=== PATIENT | male | born 1975 | race American Indian/Alaskan Native ===

== ENCOUNTER 2021-05-09 00:57 | Emergency (ER) | payer OTHER ==
[~2021-05-09] VITALS: Ht 177.8 cm; Wt 124.7 kg
[~2021-05-09 00:57] MED LIST: ALBU90OI INH; AMOCLA875 PO; AZIT250 PO; Augmentin 875-1 EACH PO; ESCI10; HYDACE5 PO; IBUP200; OXYACE5T PO; PANT40 PO; RXSULTRIDS PO; SULTRIDS PO
[2021-05-09 02:16] LABS: BASOPHILS ABSOLUTE AUTO 0.04 K/mm3 (0.00-0.23); BASOPHILS PERCENT AUTO 0 % (0-2); EOSINOPHILS ABSOLUTE AUTO 0.03 K/mm3 (0.00-0.68); EOSINOPHILS PERCENT AUTO 0 % (0-6); Hematocrit 50.7 % (37.0-53.0); Hemoglobin 17.1 g/dL (13.5-17.5); IMMATURE GRAN ABSOLUTE AUTO 0.06 K/mm3 (0.00-0.10); IMMATURE GRAN PERCENT AUTO 1 % (0-1); LYMPHOCYTES ABSOLUTE AUTO 1.37 K/mm3 (0.84-5.20); LYMPHOCYTES PERCENT AUTO 11 % (21-46); MONOCYTES ABSOLUTE AUTO 0.94 K/mm3 (0.16-1.47); MONOCYTES PERCENT AUTO 7 % (4-13); Mean Corpuscular HGB 31.3 pg (26.0-34.0); Mean Corpuscular HGB Conc 33.7 g/dL (31.5-36.5); Mean Corpuscular Volume 93 fL (80-100); NEUTROPHILS ABSOLUTE AUTO 10.29 K/mm3 (1.96-9.15); NEUTROPHILS PERCENT AUTO 81 % (41-73); Platelet Count 234 K/mm3 (150-400); RDW Coefficient Variation 13.6 % (11.7-14.2); RDW Standard Deviation 46.8 fL (35.1-46.3); Red Blood Cell Count 5.47 M/mm3 (4.30-5.90); White Blood Cell Count 12.73 K/mm3 (4.00-11.30)
[2021-05-09] MEDS ORDERED: CHLO25B PO (02:21)
[2021-05-09] MEDS ORDERED: Ventolin/Prove6.7 GM INH (02:21)
[2021-05-09] MEDS ORDERED: LOSA50 PO (02:21)
[2021-05-09 02:31] LABS: Alanine Aminotransfer (ALT/SGP 63 U/L (12-78); Albumin, Blood 3.9 g/dL (3.4-5.0); Albumin/Globulin Ratio 0.9 (0.8-1.8); Alk Phos 128 U/L (50-136); Anion Gap 6 mmol/L (6-16); Aspartate Aminotrans (AST/SGOT 28 U/L (12-37); Blood Urea Nitrogen 16 mg/dL (8-24); Bun/Creatinine Ratio 14.3 (12.0-20.0); CO2, Blood 29 mmol/L (21-32); Chloride, Blood 100 mmol/L (98-108); Creatinine, Blood 1.12 mg/dL (0.60-1.20); Globulin, Blood 4.3 g/dL (2.2-4.0); Glomerular Filtration Rate >60 (60-); Glucose, Blood 86 mg/dL (70-99); Potassium, Blood 3.7 mmol/L (3.5-5.5); Sodium, Blood 135 mmol/L (136-145); Total Protein, Blood 8.2 g/dL (6.4-8.2)
[2021-05-09 03:13] LABS: SARS-Cov-2 (COVID-19) PCR, MMC NEGATIVE (NEGATIVE)
[2021-05-09] MEDS ORDERED: CEPH500 PO (04:50)
== END 2021-05-09 05:25 | disposition home or self-care (01) ==
LOC: ER 00:57
PROVIDERS: Emergency Medicine
DX: L03.116 Cellulitis of left lower limb (principal); E66.9 Obesity, unspecified; J44.9 Chronic obstructive pulmonary disease, unspecified; R73.03 Prediabetes; R00.0 Tachycardia, unspecified; Z68.39 Body mass index [BMI] 39.0-39.9, adult; Z20.822 Contact with and (suspected) exposure to COVID-19
CPT/HCPCS: 36415; 80053; 83605; 85025; 96365; 99283-25; A9270; J0696; J7030; U0004

== ENCOUNTER 2021-06-14 16:26 | Inpatient (IN) | payer OTHER ==
[~2021-06-14] VITALS: Ht 177.8 cm; Wt 136.1 kg
[~2021-06-14 16:26] MED LIST changes: +CEPH500 PO; +CHLO25B PO; +LOSA50 PO; +Ventolin/Prove6.7 GM INH
[2021-06-14 17:33] LABS: BASOPHILS ABSOLUTE AUTO 0.09 K/mm3 (0.00-0.23); BASOPHILS PERCENT AUTO 0 % (0-2); EOSINOPHILS PERCENT AUTO 0 % (0-6); Hematocrit 45.3 % (37.0-53.0); Hemoglobin 15.2 g/dL (13.5-17.5); IMMATURE GRAN ABSOLUTE AUTO 0.37 K/mm3 (0.00-0.10); IMMATURE GRAN PERCENT AUTO 2 % (0-1); LYMPHOCYTES ABSOLUTE AUTO 1.05 K/mm3 (0.84-5.20); LYMPHOCYTES PERCENT AUTO 4 % (21-46); MONOCYTES ABSOLUTE AUTO 0.57 K/mm3 (0.16-1.47); MONOCYTES PERCENT AUTO 2 % (4-13); Mean Corpuscular HGB 31.5 pg (26.0-34.0); Mean Corpuscular HGB Conc 33.6 g/dL (31.5-36.5); Mean Corpuscular Volume 94 fL (80-100); Mean Platelet Volume 10.1 fL (9.1-12.4); NEUTROPHILS ABSOLUTE AUTO 22.71 K/mm3 (1.96-9.15); NEUTROPHILS PERCENT AUTO 92 % (41-73); Platelet Count 224 K/mm3 (150-400); RDW Coefficient Variation 13.7 % (11.7-14.2); RDW Standard Deviation 47.3 fL (35.1-46.3); Red Blood Cell Count 4.82 M/mm3 (4.30-5.90); White Blood Cell Count 24.79 K/mm3 (4.00-11.30)
[2021-06-14 17:53] LABS: Alanine Aminotransfer (ALT/SGP 65 U/L (12-78); Albumin, Blood 2.7 g/dL (3.4-5.0); Albumin/Globulin Ratio 0.6 (0.8-1.8); Alk Phos 107 U/L (50-136); Anion Gap 7 mmol/L (6-16); Aspartate Aminotrans (AST/SGOT 51 U/L (12-37); Blood Urea Nitrogen 16 mg/dL (8-24); Bun/Creatinine Ratio 15.8 (12.0-20.0); CO2, Blood 24 mmol/L (21-32); Calcium, Blood 8.3 mg/dL (8.5-10.1); Chloride, Blood 102 mmol/L (98-108); Creatinine, Blood 1.01 mg/dL (0.60-1.20); Globulin, Blood 4.2 g/dL (2.2-4.0); Glomerular Filtration Rate >60 (60-); Glucose, Blood 110 mg/dL (70-99); Potassium, Blood 3.7 mmol/L (3.5-5.5); Sodium, Blood 133 mmol/L (136-145); Total Protein, Blood 6.9 g/dL (6.4-8.2)
[2021-06-14 21:33] LABS: SARS-Cov-2 (COVID-19) PCR, MMC NEGATIVE (NEGATIVE)
--- NOTE | 2021-06-14 23:55 | NUR ---
RECEIVED PATIENT FROM ED A&OX4. PATIENT NOTED HAVING LABORED BREATHING,3L O2 VIA NASAL CANNULA ADMINISTERED. PATIENT TOLERATED WELL. PATIENT IS A STAND BY ASSIST DUE TO LEG INFECTION. PATIENT DENIES PAIN. PATIENT ORIENTED TO ROOM AND CALL LIGHT. SAFETY MEASURES IN PLACE. WILL CONTINUE TO MONITOR PATIENT FOR SAFETY.
--- NOTE | 2021-06-15 03:57 | NUR ---
PATIENT IS A&OX3. STAND BY ASSIST. PRESENTLY ON O2 NASAL CANNULA @ 3L/MIN DUE TO LABORED BREATHING. PATIENT DENIES PAIN OR DISCOMFORT. PATIENT IS ON SCHEDULED IV ANTIBIOTIC DUE TO CELLULITIS OF LEFT LEG AND SEPSIS. PATIENT IS COMPLIANT WITH MEDICATIONS. ADLS PROVIDED. SAFETY MEASURES IN PLACE. WILL CONTINUE TO MONITOR.
[2021-06-15 05:10] LABS: BASOPHILS ABSOLUTE AUTO 0.05 K/mm3 (0.00-0.23); BASOPHILS PERCENT AUTO 0 % (0-2); EOSINOPHILS ABSOLUTE AUTO 0.05 K/mm3 (0.00-0.68); EOSINOPHILS PERCENT AUTO 0 % (0-6); Hemoglobin 15.1 g/dL (13.5-17.5); IMMATURE GRAN ABSOLUTE AUTO 0.11 K/mm3 (0.00-0.10); IMMATURE GRAN PERCENT AUTO 1 % (0-1); LYMPHOCYTES ABSOLUTE AUTO 1.03 K/mm3 (0.84-5.20); LYMPHOCYTES PERCENT AUTO 5 % (21-46); MONOCYTES ABSOLUTE AUTO 0.32 K/mm3 (0.16-1.47); MONOCYTES PERCENT AUTO 2 % (4-13); Mean Corpuscular HGB 31.1 pg (26.0-34.0); Mean Corpuscular HGB Conc 32.8 g/dL (31.5-36.5); Mean Corpuscular Volume 95 fL (80-100); NEUTROPHILS ABSOLUTE AUTO 18.83 K/mm3 (1.96-9.15); NEUTROPHILS PERCENT AUTO 92 % (41-73); Platelet Count 178 K/mm3 (150-400); RDW Coefficient Variation 13.9 % (11.7-14.2); RDW Standard Deviation 48.4 fL (35.1-46.3); Red Blood Cell Count 4.86 M/mm3 (4.30-5.90); White Blood Cell Count 20.39 K/mm3 (4.00-11.30)
[2021-06-15 05:55] LABS: Anion Gap 11 mmol/L (6-16); Blood Urea Nitrogen 15 mg/dL (8-24); CO2, Blood 20 mmol/L (21-32); Calcium, Blood 8.2 mg/dL (8.5-10.1); Chloride, Blood 101 mmol/L (98-108); Creatinine, Blood 0.94 mg/dL (0.60-1.20); Glomerular Filtration Rate >60 (60-); Glucose, Blood 95 mg/dL (70-99); Potassium, Blood 3.5 mmol/L (3.5-5.5); Sodium, Blood 132 mmol/L (136-145)
--- NOTE | 2021-06-15 18:05 | NUR ---
SHIFT SUMMARY PT SLEEPING AT START OF SHIFT AND MOST OF THE DAY. PT WAKES EASILY FOR CARE AND IS VERY PLEASANT AND CO-OP. RLE VERY RED AND SWOLLEN R/T CELLULITIS. SMALL WOUNDS TO LLE CALF. DR FUNES AND DR ZURITA BOTH IN TO SEE PT TODAY. RLE REDNESS MARKED BY DR FUNES. IV ABX GIVEN THRU OUT THE DAY, PER EMAR. PT HAS BEEN INDEPENDENT TO BTHRM NEEDED. BIPAP ORDERED BY DR FUNES FOR SLEEP, PT AGREED TO TRY IT. C/O PAIN TO RLE THIS EVENING; MEDICATED PER EMAR. CURRENTLY EATING DINNER AND TALKING ON PHONE. CALL LT IN REACH.
--- NOTE | 2021-06-16 04:09 | NUR ---
PATIENT WAS SLEEPING MOST OF THE SHIFT.EASY TO AROUSE. PT COMPLIANT WITH MEDS. RT CONNECTED PATIENT TO NEW BIPAP MACHINE. PT TOLERATED WELL. BREATHING EVEN AND UNLABORED. ADLS PROVIDED. SAFETY MEASURES IN PLACE. WILL CONTINUE TO MONITOR.
[2021-06-16 07:23] LABS: BASOPHILS ABSOLUTE AUTO 0.01 K/mm3 (0.00-0.23); BASOPHILS PERCENT AUTO 0 % (0-2); EOSINOPHILS ABSOLUTE AUTO 0.09 K/mm3 (0.00-0.68); EOSINOPHILS PERCENT AUTO 1 % (0-6); Hematocrit 46.6 % (37.0-53.0); Hemoglobin 15.6 g/dL (13.5-17.5); IMMATURE GRAN ABSOLUTE AUTO 0.05 K/mm3 (0.00-0.10); IMMATURE GRAN PERCENT AUTO 0 % (0-1); LYMPHOCYTES ABSOLUTE AUTO 1.01 K/mm3 (0.84-5.20); LYMPHOCYTES PERCENT AUTO 8 % (21-46); MONOCYTES ABSOLUTE AUTO 0.62 K/mm3 (0.16-1.47); MONOCYTES PERCENT AUTO 5 % (4-13); Mean Corpuscular HGB 31.8 pg (26.0-34.0); Mean Corpuscular HGB Conc 33.5 g/dL (31.5-36.5); Mean Corpuscular Volume 95 fL (80-100); Mean Platelet Volume 10.1 fL (9.1-12.4); NEUTROPHILS ABSOLUTE AUTO 10.27 K/mm3 (1.96-9.15); NEUTROPHILS PERCENT AUTO 85 % (41-73); Platelet Count 172 K/mm3 (150-400); RDW Coefficient Variation 13.9 % (11.7-14.2); RDW Standard Deviation 48.7 fL (35.1-46.3); White Blood Cell Count 12.05 K/mm3 (4.00-11.30)
[2021-06-16 07:39] LABS: Alanine Aminotransfer (ALT/SGP 43 U/L (12-78); Albumin, Blood 2.2 g/dL (3.4-5.0); Albumin/Globulin Ratio 0.5 (0.8-1.8); Alk Phos 97 U/L (50-136); Anion Gap 7 mmol/L (6-16); Aspartate Aminotrans (AST/SGOT 33 U/L (12-37); Bilirubin, Total 0.8 mg/dL (0.1-1.0); Blood Urea Nitrogen 24 mg/dL (8-24); Bun/Creatinine Ratio 30.6 (12.0-20.0); CO2, Blood 23 mmol/L (21-32); Calcium, Blood 8.4 mg/dL (8.5-10.1); Chloride, Blood 104 mmol/L (98-108); Creatinine, Blood 0.79 mg/dL (0.60-1.20); Globulin, Blood 4.6 g/dL (2.2-4.0); Glomerular Filtration Rate >60 (60-); Glucose, Blood 104 mg/dL (70-99); Potassium, Blood 3.7 mmol/L (3.5-5.5); Sodium, Blood 134 mmol/L (136-145); Total Protein, Blood 6.8 g/dL (6.4-8.2)
--- NOTE | 2021-06-16 16:48 | NUR ---
SHIFT SUMMARY PATIENT IS ALERT AND ORIENTED X4. PATIENT IS PLEASENT AND COOPERATIVE WITH CARE. PATIENT IS RESTLESS AND IS REQUESTING AN EARLY DISCHARGE WHICH IS BEING MONITORED BY DR AFTER EVENING ANTIBIOTICS GIVEN. PATIENT HAS TAKEN A SHOWER AND IS IN BETTER SPIRITS AFTERWARDS. PATIENT HAS BEEN INDEPENDENT TO BATHROOM AND IN ROOM. VITAL SIGNS REVIEWED. WILL CONTINUE TO MONITOR UNTIL SHIFT CHANGE.
[2021-06-16] MEDS ORDERED: CEFP200 PO (18:21)
[2021-06-16] MEDS ORDERED: VISBIOME 112.51 EACH PO (18:21)
== END 2021-06-16 18:45 | disposition home or self-care (01) | DRG 872 ==
LOC: ER 16:26 → MEDS 19:55
PROVIDERS: Emergency Medicine; Internal Medicine; ADMIT Family Medicine
PROC: 5A0935A Assistance with Respiratory Ventilation, Less than 24 Consecutive Hours, High Flow/Velocity Cannula (ICD-10-PCS; principal; 2021-06-15)
DX: A41.9 Sepsis, unspecified organism (principal); L03.116 Cellulitis of left lower limb; E87.1 Hypo-osmolality and hyponatremia; E87.2 Acidosis; Z68.41 Body mass index [BMI] 40.0-44.9, adult; Z20.822 Contact with and (suspected) exposure to COVID-19; R65.20 Severe sepsis without septic shock; I10 Essential (primary) hypertension; Z79.899 Other long term (current) drug therapy; J44.9 Chronic obstructive pulmonary disease, unspecified; F17.210 Nicotine dependence, cigarettes, uncomplicated; E66.9 Obesity, unspecified; G47.33 Obstructive sleep apnea (adult) (pediatric)
CPT/HCPCS: 36415; 73701; 80048; 80053; 83605; 84145; 85025; 93005; 93010; 94660; 94762; 96365-59; 96366-59; 96367-59; 99285-25; A9270; J0690; J1650; J1885; J3370; J7030; J7050; Q9967; U0004

== ENCOUNTER → 2021-10-31 | Outpatient (CLI) | payer OTHER ==
[~2021-10-31] MED LIST changes: +ASPI81CH PO; +ATEN25 PO; +Acetaminophen650 M1 PO; +CEFP200 PO; +GABA300 PO; +LASIX40 MG PO; +POTA8 PO; +VISBIOME 112.51 EACH PO
== END | disposition home or self-care (01) ==
LOC: LAB SHORT 09:24
DX: I50.9 Heart failure, unspecified (principal); M10.9 Gout, unspecified; F17.218 Nicotine dependence, cigarettes, with other nicotine-induced disorders; F15.10 Other stimulant abuse, uncomplicated; E66.8 Other obesity
CPT/HCPCS: 83880

== ENCOUNTER 2022-11-03 20:33 | Inpatient (IN) | payer OTHER ==
[~2022-11-03] VITALS: Ht 177.8 cm; Wt 124.1 kg
[~2022-11-03 20:33] MED LIST changes: -LASIX40 MG PO; -POTA8 PO
[2022-11-03 21:12] LABS: BASOPHILS ABSOLUTE AUTO 0.05 K/mm3 (0.00-0.23); BASOPHILS PERCENT AUTO 1 % (0-2); EOSINOPHILS ABSOLUTE AUTO 0.08 K/mm3 (0.00-0.68); EOSINOPHILS PERCENT AUTO 1 % (0-6); Hematocrit 51.1 % (37.0-53.0); Hemoglobin 16.9 g/dL (13.5-17.5); IMMATURE GRAN ABSOLUTE AUTO 0.01 K/mm3 (0.00-0.10); IMMATURE GRAN PERCENT AUTO 0 % (0-1); LYMPHOCYTES ABSOLUTE AUTO 0.96 K/mm3 (0.84-5.20); LYMPHOCYTES PERCENT AUTO 16 % (21-46); MONOCYTES ABSOLUTE AUTO 0.63 K/mm3 (0.16-1.47); MONOCYTES PERCENT AUTO 11 % (4-13); Mean Corpuscular HGB 29.9 pg (26.0-34.0); Mean Corpuscular HGB Conc 33.1 g/dL (31.5-36.5); Mean Corpuscular Volume 90 fL (80-100); NEUTROPHILS ABSOLUTE AUTO 4.15 K/mm3 (1.96-9.15); NEUTROPHILS PERCENT AUTO 71 % (41-73); Platelet Count 244 K/mm3 (150-400); RDW Coefficient Variation 15.2 % (11.7-14.2); RDW Standard Deviation 50.3 fL (35.1-46.3); Red Blood Cell Count 5.65 M/mm3 (4.30-5.90); White Blood Cell Count 5.88 K/mm3 (4.00-11.30)
[2022-11-03 21:29] LABS: Albumin, Blood 3.2 g/dL (3.4-5.0); Albumin/Globulin Ratio 0.7 (0.8-1.8); Bilirubin, Total 0.5 mg/dL (0.1-1.0); Bun/Creatinine Ratio 26.4 (12.0-20.0); Calcium, Blood 8.8 mg/dL (8.5-10.1); Creatinine, Blood 0.83 mg/dL (0.60-1.20); Globulin, Blood 4.8 g/dL (2.2-4.0); Potassium, Blood 4.5 mmol/L (3.5-5.5)
[2022-11-03 21:30] LABS: Influenza A, PCR NEGATIVE (NEGATIVE); Influenza B, PCR NEGATIVE (NEGATIVE); Resp Syncytial Virus, PCR NEGATIVE (NEGATIVE); SARS-Cov-2 (COVID-19) PCR, MMC NEGATIVE (NEGATIVE)
[2022-11-03 23:12] LABS: Source, Urine Clean Catch
[2022-11-03 23:23] LABS: Appearance, Urine Clear (Clear); Bilirubin, Urine Neg (Neg); Blood, Urine 1+ (Neg); Color, Urine Yellow (P-Yellow); Glucose Qualitative, Urine Neg (Neg); Ketones, Urine Neg (Neg); Leukocyte Esterase, Urine Neg (Neg); Nitrite, Urine Neg (Neg); Protein, Urine Neg (Neg); Urobilinogen, Urine NORM (Normal)
[2022-11-04 00:22] LABS: Bacteria Few /hpf; Squamous Epithelial Cells Rare /hpf (Few); White Blood Cells, Urine 0-2 /hpf (0-5)
--- NOTE | 2022-11-04 02:54 | NUR ---
ADMIT NOTE 46 YR OLD MALE ADMITTED TO FLOOR FROM THE ED WITH DX OF CHF EXACERBATION. HAND BOOKBINDER ERPORTED PT CAME IN WITH SOB AND COUGH. HAD SWELLING OF BLE, RECEIVED LASIX IN THE ED. VSS. ALERT TO QUESTIONS ASKED. HOB ELEVATED, O2 AT 4L/NC. NOTE BLE SWELLING WITH RED AND SORES OF SKIN. PT SAID MD ASSESSED THEN AND IT WAS "SWELLING BECAUSE I HAVE CHF - NOT CELLULITIS". BLE ELEVATED. PLACED ON TELE PER MD ORDERS. ORIENTED TO USE OF CALL LIGHT. CALL LIGHT IN REACH. WILL CONTINUE TO MONITOR
[2022-11-04 05:12] LABS: BASOPHILS ABSOLUTE AUTO 0.05 K/mm3 (0.00-0.23); BASOPHILS PERCENT AUTO 1 % (0-2); EOSINOPHILS ABSOLUTE AUTO 0.04 K/mm3 (0.00-0.68); EOSINOPHILS PERCENT AUTO 1 % (0-6); Hemoglobin 16.6 g/dL (13.5-17.5); IMMATURE GRAN ABSOLUTE AUTO 0.02 K/mm3 (0.00-0.10); IMMATURE GRAN PERCENT AUTO 0 % (0-1); LYMPHOCYTES ABSOLUTE AUTO 1.66 K/mm3 (0.84-5.20); LYMPHOCYTES PERCENT AUTO 23 % (21-46); MONOCYTES ABSOLUTE AUTO 0.98 K/mm3 (0.16-1.47); MONOCYTES PERCENT AUTO 14 % (4-13); Mean Corpuscular HGB Conc 32.5 g/dL (31.5-36.5); Mean Corpuscular Volume 92 fL (80-100); Mean Platelet Volume 10.1 fL (9.1-12.4); NEUTROPHILS ABSOLUTE AUTO 4.49 K/mm3 (1.96-9.15); NEUTROPHILS PERCENT AUTO 62 % (41-73); Platelet Count 222 K/mm3 (150-400); RDW Coefficient Variation 15.5 % (11.7-14.2); RDW Standard Deviation 52.4 fL (35.1-46.3); Red Blood Cell Count 5.53 M/mm3 (4.30-5.90); White Blood Cell Count 7.24 K/mm3 (4.00-11.30)
--- NOTE | 2022-11-04 05:16 | NUR ---
POUND ATTENDANT SUMMARY HAS BEEN RESTING DEEPLY WITH FEW INTERRUPTIONS SINCE ADMISSION, O2 PER NC. DENIED CHEST PAIN. LEGS ELEVATED REMAIN SWOLLEN AND RED. CALL LIGHT IN REACH. WILL CONTINUE TO MONITOR. HX HTN, BP ELEVATED OTHERWISE VSS.
[2022-11-04 05:36] LABS: Albumin/Globulin Ratio 0.7 (0.8-1.8); Bilirubin, Total 0.7 mg/dL (0.1-1.0); Calcium, Blood 8.4 mg/dL (8.5-10.1); Creatinine, Blood 0.85 mg/dL (0.60-1.20); Globulin, Blood 4.4 g/dL (2.2-4.0); Magnesium, Blood 2.1 mg/dL (1.6-2.4); Potassium, Blood 4.8 mmol/L (3.5-5.5); Total Protein, Blood 7.4 g/dL (6.4-8.2)
[2022-11-04] MEDS ORDERED: LASIX40 MG PO (16:35)
[2022-11-04] MEDS ORDERED: POTCHL20ER PO (16:36)
--- NOTE | 2022-11-04 19:21 | NUR ---
PT ALERT NO S/S OF ACUTE DISTRESS. SAFETY MEASURES IN PLACE REPORT GIVEN TO ON COMING NURSE.
[2022-11-05 05:30] LABS: Hematocrit 52.5 % (37.0-53.0); Hemoglobin 17.3 g/dL (13.5-17.5); Mean Corpuscular HGB 30.4 pg (26.0-34.0); Mean Corpuscular Volume 92 fL (80-100); Mean Platelet Volume 10.3 fL (9.1-12.4); Platelet Count 211 K/mm3 (150-400); RDW Coefficient Variation 15.2 % (11.7-14.2); RDW Standard Deviation 51.7 fL (35.1-46.3); White Blood Cell Count 7.13 K/mm3 (4.00-11.30)
[2022-11-05 06:18] LABS: Albumin, Blood 2.8 g/dL (3.4-5.0); Albumin/Globulin Ratio 0.6 (0.8-1.8); Bilirubin, Total 0.5 mg/dL (0.1-1.0); Bun/Creatinine Ratio 29.3 (12.0-20.0); Calcium, Blood 8.6 mg/dL (8.5-10.1); Creatinine, Blood 0.89 mg/dL (0.60-1.20); Globulin, Blood 4.4 g/dL (2.2-4.0); Total Protein, Blood 7.2 g/dL (6.4-8.2)
--- NOTE | 2022-11-05 19:15 | NUR ---
PT ALERT NO S/S OF ACUTE DISTRESS. SAFETY MEASURES IN PLACE REPORT GIVEN TO ON COMING NURSE.
[2022-11-06 05:30] LABS: Hematocrit 54.5 % (37.0-53.0); Mean Corpuscular Volume 91 fL (80-100); Mean Platelet Volume 10.6 fL (9.1-12.4); Platelet Count 184 K/mm3 (150-400); RDW Standard Deviation 50.7 fL (35.1-46.3); White Blood Cell Count 7.15 K/mm3 (4.00-11.30)
--- NOTE | 2022-11-06 05:59 | NUR ---
PT IS A&O4, INDEPENDENT WITH ADL'S, 4L NC WITH SATS IN THE MID 90'S, NO COMPLAINTS OF PAIN OR DISCOMFORT OVERNIGHT, CONTINUE POC
[2022-11-06 06:05] LABS: Albumin, Blood 2.9 g/dL (3.4-5.0); Albumin/Globulin Ratio 0.6 (0.8-1.8); Bilirubin, Total 0.5 mg/dL (0.1-1.0); Calcium, Blood 8.8 mg/dL (8.5-10.1); Creatinine, Blood 0.76 mg/dL (0.60-1.20); Globulin, Blood 4.5 g/dL (2.2-4.0); Potassium, Blood 4.9 mmol/L (3.5-5.5); Total Protein, Blood 7.4 g/dL (6.4-8.2)
--- NOTE | 2022-11-06 19:11 | NUR ---
PT ALERT NO S/S OF ACUTE DISTRESS, SAFETY MEASURES IN PLACE REPORT GIVEN TO ON COMING NURSE.
[2022-11-07 09:18] LABS: Albumin, Blood 2.8 g/dL (3.4-5.0); Anion Gap 3 mmol/L (6-16); Blood Urea Nitrogen 25 mg/dL (8-24); Bun/Creatinine Ratio 40.9 (12.0-20.0); CO2, Blood 29 mmol/L (21-32); Calcium, Blood 8.7 mg/dL (8.5-10.1); Chloride, Blood 106 mmol/L (98-108); Creatinine, Blood 0.61 mg/dL (0.60-1.20); Glomerular Filtration Rate 121 (60-); Glucose, Blood 130 mg/dL (70-99); Phosphorus, Blood 3.5 mg/dL (2.5-4.9); Potassium, Blood 4.6 mmol/L (3.5-5.5); Sodium, Blood 138 mmol/L (136-145)
[2022-11-07] MEDS ORDERED: ASPI81CH PO (11:23)
[2022-11-07] MEDS ORDERED: BISA10S PR (11:24)
[2022-11-07] MEDS ORDERED: DOCU100 PO (11:24)
[2022-11-07] MEDS ORDERED: GABA300 PO (11:25)
[2022-11-07] MEDS ORDERED: METO25 PO (11:25)
[2022-11-07] MEDS ORDERED: MIRALAX17 GM PO (11:26)
--- NOTE | 2022-11-07 11:26 | NUR ---
PT REFUSE TO WAIT FOR HOME O2 FABRIZIOAL I WALKED PT AROUND THE UNIT TWICE O2 SAT ON ROOM AIR IS 97% REVIEW PT VITALS TO CONFIRM. CHARGE NURSE MADE AWARE DOCTOR MADE AWARE. PT DC HOME.
[2022-11-07] MEDS ORDERED: ALBU90OI INH (11:27)
== END 2022-11-07 11:51 | disposition home or self-care (01) | DRG 291 ==
LOC: ER 20:33 → MEDS 11-04 00:05
PROVIDERS: Emergency Medicine; Internal Medicine; Student in an Organized Health Care Education/Training Program; ADMIT Student in an Organized Health Care Education/Training Program
PROC: 5A09357 Assistance with Respiratory Ventilation, Less than 24 Consecutive Hours, Continuous Positive Airway Pressure (ICD-10-PCS; principal; 2022-11-04)
DX: I11.0 Hypertensive heart disease with heart failure (principal); I50.43 Acute on chronic combined systolic (congestive) and diastolic (congestive) heart failure; J96.01 Acute respiratory failure with hypoxia; J98.11 Atelectasis; R65.10 Systemic inflammatory response syndrome (SIRS) of non-infectious origin without acute organ dysfunction; Z68.41 Body mass index [BMI] 40.0-44.9, adult; I42.0 Dilated cardiomyopathy; J44.9 Chronic obstructive pulmonary disease, unspecified; G47.33 Obstructive sleep apnea (adult) (pediatric); I27.20 Pulmonary hypertension, unspecified; F17.210 Nicotine dependence, cigarettes, uncomplicated; I42.7 Cardiomyopathy due to drug and external agent; I08.1 Rheumatic disorders of both mitral and tricuspid valves; F15.10 Other stimulant abuse, uncomplicated; E11.9 Type 2 diabetes mellitus without complications; E66.9 Obesity, unspecified; J06.9 Acute upper respiratory infection, unspecified; Z20.822 Contact with and (suspected) exposure to COVID-19; Z91.199 Patient's noncompliance with other medical treatment and regimen due to unspecified reason; Z79.899 Other long term (current) drug therapy; Z79.51 Long term (current) use of inhaled steroids; Z79.82 Long term (current) use of aspirin; Z79.01 Long term (current) use of anticoagulants; Z99.81 Dependence on supplemental oxygen
CPT/HCPCS: 0241U; 36415; 71046; 71260; 80053; 80069; 81001; 82947; 83605; 83735; 83880; 84145; 84484; 85025; 85027; 87040; 93005; 93010; 93306; 94640; 94664; 94761; 94762; 96374; 96375; 99285-25; A9270; J0696; J1650; J1885; J1940; Q9967

== ENCOUNTER 2023-06-09 18:39 | Inpatient (IN) | payer OTHER ==
[~2023-06-09] VITALS: Ht 177.8 cm; Wt 132.8 kg
[~2023-06-09 18:39] MED LIST changes: +BISA10S PR; +DOCU100 PO; +LASIX40 MG PO; +METO25 PO; +MIRALAX17 GM PO; +POTCHL20ER PO
[2023-06-09 20:36] LABS: BASOPHILS ABSOLUTE AUTO 0.04 K/mm3 (0.00-0.23); BASOPHILS PERCENT AUTO 0 % (0-2); EOSINOPHILS ABSOLUTE AUTO 0.08 K/mm3 (0.00-0.68); EOSINOPHILS PERCENT AUTO 1 % (0-6); Hematocrit 50.6 % (37.0-53.0); IMMATURE GRAN ABSOLUTE AUTO 0.12 K/mm3 (0.00-0.10); IMMATURE GRAN PERCENT AUTO 1 % (0-1); LYMPHOCYTES ABSOLUTE AUTO 0.82 K/mm3 (0.84-5.20); LYMPHOCYTES PERCENT AUTO 7 % (21-46); MONOCYTES ABSOLUTE AUTO 0.29 K/mm3 (0.16-1.47); MONOCYTES PERCENT AUTO 2 % (4-13); Mean Corpuscular HGB 31.5 pg (26.0-34.0); Mean Corpuscular HGB Conc 33.6 g/dL (31.5-36.5); Mean Corpuscular Volume 94 fL (80-100); Mean Platelet Volume 10.3 fL (9.1-12.4); NEUTROPHILS ABSOLUTE AUTO 10.96 K/mm3 (1.96-9.15); NEUTROPHILS PERCENT AUTO 89 % (41-73); Platelet Count 156 K/mm3 (150-400); RDW Coefficient Variation 14.1 % (11.7-14.2); RDW Standard Deviation 48.6 fL (35.1-46.3); Red Blood Cell Count 5.39 M/mm3 (4.30-5.90); White Blood Cell Count 12.31 K/mm3 (4.00-11.30)
[2023-06-09 21:00] LABS: Albumin, Blood 2.9 g/dL (3.4-5.0); Albumin/Globulin Ratio 0.7 (0.8-1.8); Bilirubin, Total 1.5 mg/dL (0.1-1.0); Bun/Creatinine Ratio 23.2 (12.0-20.0); Calcium, Blood 8.7 mg/dL (8.5-10.1); Creatinine, Blood 0.91 mg/dL (0.60-1.20); Globulin, Blood 4.1 g/dL (2.2-4.0); Potassium, Blood 4.9 mmol/L (3.5-5.5)
[2023-06-10 00:33] VITALS: BP 125/89
[2023-06-10] MEDS ORDERED: LOSA50 PO (02:20)
[2023-06-10] MEDS ORDERED: MUPIROCIN2210 TOP (02:21)
[2023-06-10] MEDS ORDERED: METOPROLOL TART25 MG PO (02:22)
[2023-06-10 02:48] VITALS: BP 124/65
--- NOTE | 2023-06-10 04:12 | NUR ---
SHIFT SUMMARY *JAYCE* ARRIVED FROM THE ED AT APPROX 0015. HE WAS ALERT AND ORIENTED BUT SLEEPY. PT ABLE TO AMBULATE TO BED. ADMISSION HX AND ASSEMENT COMPLETE, HOME MEDS NEED TO BE VERIFIED, WILL PASS ALONG TO DAY SHIFT TO CONTACT [facility]. PT IS ON 4L 02 NC AND SATING IN LOW 90'S WITH OCCASIONAL DIPS INTO HIGH 80'S D/T SLEEP APNEA. HE HAS CELLULITIS OF THE RIGHT LEG FROM ANKLE TO ABOVE THE KNEE, BORDERS WERE MARKED IN THE ED. PT DENIES PAIN. WILL CONTINUE TO MONITOR. PT IS RESTING IN BED IN A LOW POSITION WITH THE CALL LIGHT IN REACH.
[2023-06-10 07:47] VITALS: BP 137/89
[2023-06-10 10:43] LABS: BASOPHILS ABSOLUTE AUTO 0.04 K/mm3 (0.00-0.23); BASOPHILS PERCENT AUTO 0 % (0-2); EOSINOPHILS ABSOLUTE AUTO 0.11 K/mm3 (0.00-0.68); EOSINOPHILS PERCENT AUTO 1 % (0-6); Hemoglobin 16.1 g/dL (13.5-17.5); IMMATURE GRAN ABSOLUTE AUTO 0.05 K/mm3 (0.00-0.10); IMMATURE GRAN PERCENT AUTO 1 % (0-1); LYMPHOCYTES ABSOLUTE AUTO 0.74 K/mm3 (0.84-5.20); LYMPHOCYTES PERCENT AUTO 7 % (21-46); MONOCYTES ABSOLUTE AUTO 0.37 K/mm3 (0.16-1.47); MONOCYTES PERCENT AUTO 4 % (4-13); Mean Corpuscular HGB 31.9 pg (26.0-34.0); Mean Corpuscular HGB Conc 33.5 g/dL (31.5-36.5); Mean Corpuscular Volume 95 fL (80-100); NEUTROPHILS ABSOLUTE AUTO 8.83 K/mm3 (1.96-9.15); NEUTROPHILS PERCENT AUTO 87 % (41-73); Platelet Count 144 K/mm3 (150-400); RDW Coefficient Variation 14.2 % (11.7-14.2); RDW Standard Deviation 49.6 fL (35.1-46.3); Red Blood Cell Count 5.05 M/mm3 (4.30-5.90); White Blood Cell Count 10.14 K/mm3 (4.00-11.30)
[2023-06-10 10:56] LABS: U Amphetamine Screen DETECTED; U Barbituate Screen Not Detected; U Benzodiazapine Screen Not Detected; U Buprenorphine Screen Not Detected; U Cannabinoids Screen Not Detected; U Cocaine Screen Not Detected; U Methadone Screen Not Detected; U Methamphetamine Screen DETECTED; U Opiates Screen Not Detected; U Oxycodone Screen Not Detected; U Phencyclidine Screen Not Detected; U Propoxyphene Screen Not Detected
[2023-06-10 11:22] LABS: Albumin, Blood 2.4 g/dL (3.4-5.0); Albumin/Globulin Ratio 0.6 (0.8-1.8); Bilirubin, Total 0.9 mg/dL (0.1-1.0); Calcium, Blood 8.3 mg/dL (8.5-10.1); Creatinine, Blood 0.74 mg/dL (0.60-1.20); Globulin, Blood 3.9 g/dL (2.2-4.0); Potassium, Blood 4.2 mmol/L (3.5-5.5); Total Protein, Blood 6.3 g/dL (6.4-8.2)
[2023-06-10 15:00] VITALS: BP 136/91
--- NOTE | 2023-06-10 17:08 | NUR ---
SHIFT SUMMARY Pt remains A&OX3 this shift. Declines pain med for RLE cellulitis. VSS. OOB independently. 4L NC with sleep secondary to BRO. No needs id or verbalized at this time. Will continue to monitor this shift.
[2023-06-10 19:45] VITALS: BP 129/84
[2023-06-10 21:03] LABS: Vancomycin, Trough 14.2 ug/mL (5.0-10.0)
[2023-06-11 04:49] VITALS: BP 125/87
--- NOTE | 2023-06-11 06:10 | NUR ---
SHIFT SUMMARY NO EVENTS OVERNIGHT, DENIES PAIN. SLEPT WITH 4L NC AT NIGHT. FIRE SAFETY REVIEWED, NO IGNITION SOURCES FOUND.
[2023-06-11 08:14] VITALS: BP 147/102
[2023-06-11 16:25] VITALS: BP 131/84
--- NOTE | 2023-06-11 16:26 | NUR ---
SHIFT SUMMARY Pt remains A&0 x3 this shift. VSS. RLE elevated. Tolerating IV antibiotics as ordered. OOB independently. Declines pain med. Call light in reach. Will continue to monitor this shift.
[2023-06-11 19:52] VITALS: BP 132/92
--- NOTE | 2023-06-12 06:46 | NUR ---
SHIFT SUMMARY PT COMPLETED SLEEP STUDY OVERNIGHT, INFORMED BY RESPIRATORY TO NOT TAKE VS DURING OVERNIGHT SLEEP TEST AND TO KEEP DISTURBANCES TO A MINIMUM TO PROMOTE SLEEP. PT DID REQUIRE OXYGEN APPLICATION AT SOME POINT DURING THE NIGHT AND WAS APPLIED BY RESPIRATORY THERAPY. NO OTHER EVENTS. FIRE SAFETY REVIEWED, NO IGNITION SOURCES
[2023-06-12 07:34] VITALS: BP 120/84
[2023-06-12 07:50] LABS: BASOPHILS ABSOLUTE AUTO 0.06 K/mm3 (0.00-0.23); BASOPHILS PERCENT AUTO 1 % (0-2); EOSINOPHILS ABSOLUTE AUTO 0.28 K/mm3 (0.00-0.68); EOSINOPHILS PERCENT AUTO 3 % (0-6); Hematocrit 48.1 % (37.0-53.0); Hemoglobin 15.8 g/dL (13.5-17.5); IMMATURE GRAN ABSOLUTE AUTO 0.08 K/mm3 (0.00-0.10); IMMATURE GRAN PERCENT AUTO 1 % (0-1); LYMPHOCYTES ABSOLUTE AUTO 1.92 K/mm3 (0.84-5.20); LYMPHOCYTES PERCENT AUTO 21 % (21-46); MONOCYTES PERCENT AUTO 8 % (4-13); Mean Corpuscular HGB Conc 32.8 g/dL (31.5-36.5); Mean Corpuscular Volume 94 fL (80-100); Mean Platelet Volume 10.6 fL (9.1-12.4); NEUTROPHILS ABSOLUTE AUTO 6.17 K/mm3 (1.96-9.15); NEUTROPHILS PERCENT AUTO 67 % (41-73); Platelet Count 197 K/mm3 (150-400); RDW Coefficient Variation 13.9 % (11.7-14.2); RDW Standard Deviation 48.1 fL (35.1-46.3); White Blood Cell Count 9.21 K/mm3 (4.00-11.30)
[2023-06-12 08:10] LABS: Bun/Creatinine Ratio 27.6 (12.0-20.0); Calcium, Blood 8.1 mg/dL (8.5-10.1); Creatinine, Blood 0.76 mg/dL (0.60-1.20); Potassium, Blood 4.4 mmol/L (3.5-5.5)
[2023-06-12 12:48] LABS: Vancomycin, Trough 17.1 ug/mL (5.0-10.0)
[2023-06-12] MEDS ORDERED: LACT PO (15:14)
[2023-06-12] MEDS ORDERED: Acetaminophen650 M1 PO (15:14)
[2023-06-12] MEDS ORDERED: CEPH500 PO (15:15)
--- NOTE | 2023-06-12 16:19 | NUR ---
PT RESTING QUIETLY IN BED AT START OF SHIFT. WOKE EASILY FOR CARE. INDEPENDENT IN AND TO [facility]. ADMITTED FOR RLE CELLULITIS. REDNESS/SWELLING MARKED. PT RECEIVING IV ABX. DR TRIPATHI IN EARLY TO SEE PT. D/C ORDERS PLACED THIS AFTERNOON. PT ABLE TO D/C HOME AFTER IV ABX COMPLETE. PT TO CONTINUE WITH PO ABX FOR 7 DAYS AND F/U WITH PCP. D/C INSTRUCTIONS REVIEWED WITH PT; VERBALIZED UNDERSTANDING. MEDS FAXED TO [facility] PER PT REQUEST. PT ABLE TO AMBULATE ON HIS OWN. FAMILY HERE FOR P/U.
== END 2023-06-12 15:49 | disposition home or self-care (01) | DRG 872 ==
LOC: ER 18:39 → MEDS 18:40
PROVIDERS: Emergency Medicine; Family Medicine; Internal Medicine; ADMIT Student in an Organized Health Care Education/Training Program
DX: A41.9 Sepsis, unspecified organism (principal); L03.115 Cellulitis of right lower limb; E87.1 Hypo-osmolality and hyponatremia; I50.42 Chronic combined systolic (congestive) and diastolic (congestive) heart failure; E66.9 Obesity, unspecified; I27.20 Pulmonary hypertension, unspecified; R94.5 Abnormal results of liver function studies; J44.9 Chronic obstructive pulmonary disease, unspecified; F15.90 Other stimulant use, unspecified, uncomplicated; E88.81 Metabolic syndrome and other insulin resistance; B95.7 Other staphylococcus as the cause of diseases classified elsewhere; G47.30 Sleep apnea, unspecified; I11.0 Hypertensive heart disease with heart failure; R73.03 Prediabetes; Z91.199 Patient's noncompliance with other medical treatment and regimen due to unspecified reason; F17.210 Nicotine dependence, cigarettes, uncomplicated; Z79.899 Other long term (current) drug therapy; Z68.38 Body mass index [BMI] 38.0-38.9, adult
CPT/HCPCS: 36415; 71046; 73701; 80048; 80053; 80202; 82947; 83036; 83605; 83880; 85025; 87040; 87077; 94760; 94762; 96365-59; 96366; 96372; 99285-25; A9270; G0378; J0690; J1650; J3370; J7030; J7050; Q9967

== ENCOUNTER 2023-08-26 14:58 | Emergency (ER) | payer OTHER ==
[~2023-08-26] VITALS: Ht 177.8 cm; Wt 129.7 kg
[~2023-08-26 14:58] MED LIST changes: +LACT PO; +METOPROLOL TART25 MG PO; +MUPIROCIN2210 TOP
[2023-08-26 16:40] LABS: Albumin, Blood 3.4 g/dL (3.4-5.0); Albumin/Globulin Ratio 0.8 (0.8-1.8); Bilirubin, Total 0.7 mg/dL (0.1-1.0); Bun/Creatinine Ratio 18.2 (12.0-20.0); Calcium, Blood 8.7 mg/dL (8.5-10.1); Creatinine, Blood 0.72 mg/dL (0.60-1.20); Globulin, Blood 4.5 g/dL (2.2-4.0); Potassium, Blood 5.2 mmol/L (3.5-5.5); Total Protein, Blood 7.9 g/dL (6.4-8.2)
[2023-08-26 18:50] LABS: BASOPHILS ABSOLUTE AUTO 0.03 K/mm3 (0.00-0.23); BASOPHILS PERCENT AUTO 0 % (0-2); EOSINOPHILS ABSOLUTE AUTO 0.19 K/mm3 (0.00-0.68); EOSINOPHILS PERCENT AUTO 2 % (0-6); Hematocrit 53.9 % (37.0-53.0); IMMATURE GRAN ABSOLUTE AUTO 0.04 K/mm3 (0.00-0.10); IMMATURE GRAN PERCENT AUTO 0 % (0-1); LYMPHOCYTES ABSOLUTE AUTO 1.86 K/mm3 (0.84-5.20); LYMPHOCYTES PERCENT AUTO 18 % (21-46); MONOCYTES ABSOLUTE AUTO 0.84 K/mm3 (0.16-1.47); MONOCYTES PERCENT AUTO 8 % (4-13); Mean Corpuscular HGB 31.3 pg (26.0-34.0); Mean Corpuscular HGB Conc 33.4 g/dL (31.5-36.5); Mean Corpuscular Volume 94 fL (80-100); Mean Platelet Volume 10.4 fL (9.1-12.4); NEUTROPHILS ABSOLUTE AUTO 7.52 K/mm3 (1.96-9.15); NEUTROPHILS PERCENT AUTO 72 % (41-73); Platelet Count 255 K/mm3 (150-400); RDW Standard Deviation 41.4 fL (35.1-46.3); Red Blood Cell Count 5.76 M/mm3 (4.30-5.90); White Blood Cell Count 10.48 K/mm3 (4.00-11.30)
[2023-08-26 20:14] VITALS: BP 126/94
[2023-08-26] MEDS ORDERED: GABA300 PO (20:17)
== END 2023-08-26 20:26 | disposition home or self-care (01) ==
LOC: ER 14:58
PROVIDERS: Physician Assistant
DX: J06.9 Acute upper respiratory infection, unspecified (principal); B97.4 Respiratory syncytial virus as the cause of diseases classified elsewhere; Z20.822 Contact with and (suspected) exposure to COVID-19; Z86.16 Personal history of COVID-19; Z87.01 Personal history of pneumonia (recurrent); J45.909 Unspecified asthma, uncomplicated; F84.0 Autistic disorder; Z79.899 Other long term (current) drug therapy; Z88.8 Allergy status to other drugs, medicaments and biological substances; Z91.048 Other nonmedicinal substance allergy status
CPT/HCPCS: 71046; 80053; 83880; 84484; 85025; 93005; 93010; 99284-25

== ENCOUNTER → 2024-01-04 | Outpatient (CLI) | payer OTHER ==
[2024-01-04 14:29] LABS: BASOPHILS ABSOLUTE AUTO 0.04 K/mm3 (0.00-0.23); BASOPHILS PERCENT AUTO 1 % (0-2); EOSINOPHILS ABSOLUTE AUTO 0.42 K/mm3 (0.00-0.68); EOSINOPHILS PERCENT AUTO 5 % (0-6); Hematocrit 49.8 % (37.0-53.0); Hemoglobin 16.5 g/dL (13.5-17.5); IMMATURE GRAN ABSOLUTE AUTO 0.01 K/mm3 (0.00-0.10); IMMATURE GRAN PERCENT AUTO 0 % (0-1); LYMPHOCYTES ABSOLUTE AUTO 1.21 K/mm3 (0.84-5.20); LYMPHOCYTES PERCENT AUTO 16 % (21-46); MONOCYTES ABSOLUTE AUTO 0.61 K/mm3 (0.16-1.47); MONOCYTES PERCENT AUTO 8 % (4-13); Mean Corpuscular HGB 31.5 pg (26.0-34.0); Mean Corpuscular HGB Conc 33.1 g/dL (31.5-36.5); Mean Corpuscular Volume 95 fL (80-100); Mean Platelet Volume 10.8 fL (9.1-12.4); NEUTROPHILS ABSOLUTE AUTO 5.47 K/mm3 (1.96-9.15); NEUTROPHILS PERCENT AUTO 71 % (41-73); Platelet Count 227 K/mm3 (150-400); RDW Coefficient Variation 12.7 % (11.7-14.2); RDW Standard Deviation 44.4 fL (35.1-46.3); Red Blood Cell Count 5.24 M/mm3 (4.30-5.90); White Blood Cell Count 7.76 K/mm3 (4.00-11.30)
[2024-01-04 14:39] LABS: Albumin, Blood 3.3 g/dL (3.4-5.0); Albumin/Globulin Ratio 0.9 (0.8-1.8); Bilirubin, Total 0.5 mg/dL (0.1-1.0); Bun/Creatinine Ratio 17.9 (12.0-20.0); Calcium, Blood 8.5 mg/dL (8.5-10.1); Creatinine, Blood 1.06 mg/dL (0.60-1.20); Globulin, Blood 3.6 g/dL (2.2-4.0); Potassium, Blood 4.6 mmol/L (3.5-5.5); Total Protein, Blood 6.9 g/dL (6.4-8.2)
== END ==
LOC: LAB 14:22 → LAB SHORT 14:22
PROVIDERS: Physician Assistant
DX: R10.9 Unspecified abdominal pain (principal)
CPT/HCPCS: 80053; 83690; 83880; 85025

== ENCOUNTER 2024-11-27 17:54 | Inpatient (IN) | payer OTHER ==
[~2024-11-27] VITALS: Ht 177.8 cm; Wt 144.8 kg
[~2024-11-27 17:54] MED LIST changes: +ASPIR 8181 MG PO; +COLCRYS0.6 M1 PO; +DEPO-TESTO200 MG/18 IM; +FUROSEMIDE20 MG PO; +LOSARTAN POTASS25 M2 PO; +POTASSIUM CHLO20 ME1 PO
[2024-11-27] MEDS ORDERED: Metoclopramide HCl 5MG / ML 2ML Vial IV ONE ×2 (18:25→20:20)
[2024-11-27 18:34] LABS: BASOPHILS ABSOLUTE AUTO 0.04 K/mm3 (0.00-0.23); BASOPHILS PERCENT AUTO 0 % (0-2); EOSINOPHILS PERCENT AUTO 2 % (0-6); Hematocrit 50.5 % (37.0-53.0); Hemoglobin 16.5 g/dL (13.5-17.5); IMMATURE GRAN ABSOLUTE AUTO 0.07 K/mm3 (0.00-0.10); IMMATURE GRAN PERCENT AUTO 1 % (0-1); LYMPHOCYTES ABSOLUTE AUTO 2.63 K/mm3 (0.84-5.20); LYMPHOCYTES PERCENT AUTO 20 % (21-46); MONOCYTES ABSOLUTE AUTO 0.65 K/mm3 (0.16-1.47); MONOCYTES PERCENT AUTO 5 % (4-13); Mean Corpuscular HGB 29.4 pg (26.0-34.0); Mean Corpuscular HGB Conc 32.7 g/dL (31.5-36.5); Mean Corpuscular Volume 90 fL (80-100); Mean Platelet Volume 9.9 fL (9.1-12.4); NEUTROPHILS ABSOLUTE AUTO 9.44 K/mm3 (1.96-9.15); NEUTROPHILS PERCENT AUTO 72 % (41-73); Platelet Count 296 K/mm3 (150-400); RDW Coefficient Variation 13.9 % (11.7-14.2); RDW Standard Deviation 45.5 fL (35.1-46.3); Red Blood Cell Count 5.61 M/mm3 (4.30-5.90); White Blood Cell Count 13.13 K/mm3 (4.00-11.30)
[2024-11-27 19:16] LABS: Albumin, Blood 3.4 g/dL (3.4-5.0); Albumin/Globulin Ratio 0.9 (0.8-1.8); Bilirubin, Total 1.1 mg/dL (0.1-1.0); Bun/Creatinine Ratio 14.3 (12.0-20.0); Calcium, Blood 8.4 mg/dL (8.5-10.1); Creatinine, Blood 0.84 mg/dL (0.60-1.20); Globulin, Blood 3.6 g/dL (2.2-4.0); Potassium, Blood 3.9 mmol/L (3.5-5.5)
[2024-11-27 20:00] LABS: Source, Urine Clean Catch
[2024-11-27 20:06] LABS: Appearance, Urine Clear (Clear); Bilirubin, Urine Neg (Neg); Blood, Urine Neg (Neg); Color, Urine Yellow (P-Yellow); Glucose Qualitative, Urine Neg (Neg); Ketones, Urine Neg (Neg); Leukocyte Esterase, Urine Neg (Neg); Nitrite, Urine Neg (Neg); Protein, Urine Neg (Neg); Specific Gravity, Urine 1.015 (1.003-1.022); Urobilinogen, Urine NORM (Normal)
[2024-11-27] MEDS ORDERED: Lactated Ringer's 1,000 ML IV SCH (20:40)
[2024-11-27] MEDS ORDERED: FentaNYL Citrate 50 MCG/ML 2 ML Injection IV PRN (20:40)
[2024-11-27] MEDS ORDERED: HydrALAZINE HCl 20 MG / ML 1ML Vial IV PRN (20:45)
[2024-11-27] MEDS ORDERED: Ondansetron HCl 2 MG / ML 2ML Vial IV PRN (20:45)
[2024-11-27] MEDS ORDERED: Lactated Ringer's 1,000 ML IV ONE (21:22)
[2024-11-27 21:57] VITALS: BP 129/88
[2024-11-27] MEDS ORDERED: ROSUVASTATIN CA20 MG (22:00)
[2024-11-27] MEDS ORDERED: ALLO100 (22:01)
[2024-11-27] MEDS ORDERED: Buspirone HCl15 MG (22:02)
[2024-11-27] MEDS ORDERED: QUETIAPINE FUMA50 M2 (22:03)
[2024-11-27] MEDS ORDERED: BUPROPION XL150 M1 (22:04)
[2024-11-27 23:14] LABS: U Amphetamine Screen Not Detected; U Barbituate Screen Not Detected; U Benzodiazapine Screen Not Detected; U Buprenorphine Screen Not Detected; U Cannabinoids Screen Not Detected; U Cocaine Screen Not Detected; U Methadone Screen Not Detected; U Methamphetamine Screen Not Detected; U Opiates Screen Not Detected; U Oxycodone Screen Not Detected; U Phencyclidine Screen Not Detected
[2024-11-28] MEDS ORDERED: Insulin Human Lispro 100 Units/ML 3ML Syringe SC SCH
--- NOTE | 2024-11-28 04:11 | NUR ---
PT A&O X4, VS WNL, CBG Q6 HRS WITH LOW 100'S. NPO, IVP FENTENYL ADMINISTERED FOR PAIN. CPAP WITH O2 BLEED IN AT 2L FOR SLEEP. INDEPENDENT, IVF RUNNING LR AT 125/ HR. WILL MONITOR BOWEL PROGRESS, NO NAUSEA NOTED.
[2024-11-28 05:33] LABS: BASOPHILS ABSOLUTE AUTO 0.04 K/mm3 (0.00-0.23); BASOPHILS PERCENT AUTO 0 % (0-2); EOSINOPHILS ABSOLUTE AUTO 0.37 K/mm3 (0.00-0.68); EOSINOPHILS PERCENT AUTO 4 % (0-6); Hematocrit 46.1 % (37.0-53.0); Hemoglobin 15.4 g/dL (13.5-17.5); IMMATURE GRAN ABSOLUTE AUTO 0.04 K/mm3 (0.00-0.10); IMMATURE GRAN PERCENT AUTO 0 % (0-1); LYMPHOCYTES ABSOLUTE AUTO 2.75 K/mm3 (0.84-5.20); LYMPHOCYTES PERCENT AUTO 27 % (21-46); MONOCYTES ABSOLUTE AUTO 0.63 K/mm3 (0.16-1.47); MONOCYTES PERCENT AUTO 6 % (4-13); Mean Corpuscular HGB Conc 33.4 g/dL (31.5-36.5); Mean Corpuscular Volume 90 fL (80-100); NEUTROPHILS ABSOLUTE AUTO 6.39 K/mm3 (1.96-9.15); NEUTROPHILS PERCENT AUTO 63 % (41-73); Platelet Count 271 K/mm3 (150-400); RDW Coefficient Variation 14.1 % (11.7-14.2); RDW Standard Deviation 46.5 fL (35.1-46.3); Red Blood Cell Count 5.13 M/mm3 (4.30-5.90); White Blood Cell Count 10.22 K/mm3 (4.00-11.30)
[2024-11-28 05:58] VITALS: BP 134/95
[2024-11-28 06:00] LABS: Albumin, Blood 3.1 g/dL (3.4-5.0); Albumin/Globulin Ratio 0.9 (0.8-1.8); Bun/Creatinine Ratio 13.7 (12.0-20.0); Calcium, Blood 8.1 mg/dL (8.5-10.1); Creatinine, Blood 0.8 mg/dL (0.60-1.20); Globulin, Blood 3.3 g/dL (2.2-4.0); Potassium, Blood 4.1 mmol/L (3.5-5.5); Total Protein, Blood 6.4 g/dL (6.4-8.2)
[2024-11-28 07:15] VITALS: BP 128/90
[2024-11-28] MEDS ORDERED: Losartan Potassium 25 MG Tab PO SCH (09:00)
[2024-11-28 15:25] VITALS: BP 115/85
--- NOTE | 2024-11-28 17:17 | NUR ---
ALERT AND ORIENTED X4, CLEARLY MAKES NEEDS KNOWN, PLEASANT TO CARE, INDEPEDANT ON THE UNIT. PATIENT BT INCREASED THIS AFTERNOON, PATIENT REPORTS FLATUS, AND HAS BEEN TOLERATING CLEAR LIQUIDS, DIET HAS BEEN ADVANCED TO FULL, ABD DISTENTION SOFT, DR ARIAS TO ROUND ON PATIENT, CALL LIGHT WITH IN REACH, WILL RELAY TO PM RN
[2024-11-28 20:10] VITALS: BP 137/92
[2024-11-29 04:24] VITALS: BP 117/78
--- NOTE | 2024-11-29 05:08 | NUR ---
PATIENT HAD A HARD TIME FALLING ASLEEP LAST NIGHT. STATES HE TAKES SEROQUEL AT BEDTIME AND HAS NOT HAD IT HERE. WEARS A C-PAP AT NIGHT. ALSO STATES HE WAS HUNGRY. TOLERATING HIS DIET WELL. NO BM LAST NIGHT, NO NAUSEA OR VOMITING. REQUESTING FENTANYL FOR PAIN. CONTINUE CARE
[2024-11-29 05:43] LABS: Bun/Creatinine Ratio 14.8 (12.0-20.0); Calcium, Blood 8.6 mg/dL (8.5-10.1); Creatinine, Blood 0.81 mg/dL (0.60-1.20)
[2024-11-29 08:01] VITALS: BP 119/90
--- NOTE | 2024-11-29 08:46 | NUR ---
ASSUMED CARE OF PT- BEDSIDE REPORT COMPLETED WITH NIGHT RN. PT IS TOLLERATING THE FULL LIQUID DIET WELL, PER PT REPORT. PT REQUESTS TO ADVANCE DIET TO SOMETHING MORE SUBSTANTIAL THAN FULL LIQUIDS. PT IS WILLIAN REQUESTING HIS HOME MEDICATIONS TO BE ORDERED, HE USUALLY TAKES SEROQUEL AT BEDTIME (THIS WAS HIS BIGGEST CONCERN).
[2024-11-29] MEDS ORDERED: BusPIRone HCl 10 MG Tab PO SCH (09:00)
[2024-11-29] MEDS ORDERED: Rosuvastatin Calcium 10 MG Tab PO SCH (09:00)
[2024-11-29] MEDS ORDERED: Furosemide 20 MG Tab PO SCH (09:00)
[2024-11-29] MEDS ORDERED: Allopurinol 100 MG Tab PO SCH (09:00)
[2024-11-29] MEDS ORDERED: Losartan Potassium 25 MG Tab PO SCH (09:00)
[2024-11-29] MEDS ORDERED: HYDROcodone 5-APAP 325 TAB PO PRN (09:00)
[2024-11-29] MEDS ORDERED: Potassium Chloride 10 Meq Tablet SA PO SCH (09:30)
[2024-11-29] MEDS ORDERED: buPROPion HCL 150 MG TAB.SR.12H PO SCH (09:30)
[2024-11-29] MEDS ORDERED: Aspirin 81 MG TabEC PO SCH (09:30)
--- NOTE | 2024-11-29 14:42 | NUR ---
DISCHARGE NOTE- PT WAS GIVEN VERBAL ANND WRITTEN DISCHARGE INSTRUCTIONS AND ACKNOWLEDGED UNDERSTANDING OF THEM. IV DC'D PRIOR TO DISCHARGE BY REFUSE LABORER. PPT DECLINED ESCORT SERVICE AND WALKED OUT, UNASSISTED, NO S&S OF DISTRESS NOTED AT THE TIME OF DISCHARGE.
[2024-11-29] MEDS ORDERED: QUEtiapine Fumarate 100 MG Tab PO SCH (21:00)
== END 2024-11-29 14:34 | disposition home or self-care (01) | DRG 392 ==
LOC: ER 17:54 → MEDS 20:38 → ERHOLD 20:38 → MEDS 21:43 → ENPENDDIS 11-29 11:12 → MEDS 11-29 14:34
PROVIDERS: Internal Medicine; Nurse Practitioner Acute Care; Student in an Organized Health Care Education/Training Program; ADMIT Student in an Organized Health Care Education/Training Program
DX: K52.9 Noninfective gastroenteritis and colitis, unspecified (principal); I50.32 Chronic diastolic (congestive) heart failure; Z68.42 Body mass index [BMI] 45.0-49.9, adult; E66.01 Morbid (severe) obesity due to excess calories; G47.33 Obstructive sleep apnea (adult) (pediatric); E11.9 Type 2 diabetes mellitus without complications; F17.210 Nicotine dependence, cigarettes, uncomplicated; I11.0 Hypertensive heart disease with heart failure; I27.20 Pulmonary hypertension, unspecified; F15.91 Other stimulant use, unspecified, in remission; J43.9 Emphysema, unspecified; Z88.8 Allergy status to other drugs, medicaments and biological substances; Z79.82 Long term (current) use of aspirin; Z79.899 Other long term (current) drug therapy
CPT/HCPCS: 36415; 74177; 80048; 80053; 81003; 82947; 83690; 83735; 83880; 85025; 94660; 94762; 96374-59; 96375; 96376; 99285-25; A9270; G0378; J2765; J3010; J7120; Q9967

== ENCOUNTER 2025-01-28 22:44 | Emergency (ER) | payer OTHER ==
[~2025-01-28] VITALS: Ht 177.8 cm; Wt 149.7 kg
[~2025-01-28 22:44] MED LIST changes: +ALLO100; +BUPROPION XL150 M1; +Buspirone HCl15 MG; +QUETIAPINE FUMA50 M2; +ROSUVASTATIN CA20 MG
[2025-01-28 23:25] LABS: BASOPHILS ABSOLUTE AUTO 0.04 K/mm3 (0.00-0.23); BASOPHILS PERCENT AUTO 0 % (0-2); EOSINOPHILS ABSOLUTE AUTO 0.44 K/mm3 (0.00-0.68); EOSINOPHILS PERCENT AUTO 4 % (0-6); Hematocrit 45.3 % (37.0-53.0); Hemoglobin 15.5 g/dL (13.5-17.5); IMMATURE GRAN ABSOLUTE AUTO 0.04 K/mm3 (0.00-0.10); IMMATURE GRAN PERCENT AUTO 0 % (0-1); LYMPHOCYTES ABSOLUTE AUTO 2.83 K/mm3 (0.84-5.20); LYMPHOCYTES PERCENT AUTO 28 % (21-46); MONOCYTES PERCENT AUTO 6 % (4-13); Mean Corpuscular HGB 30.2 pg (26.0-34.0); Mean Corpuscular HGB Conc 34.2 g/dL (31.5-36.5); Mean Corpuscular Volume 88 fL (80-100); Mean Platelet Volume 10.5 fL (9.1-12.4); NEUTROPHILS ABSOLUTE AUTO 6.26 K/mm3 (1.96-9.15); NEUTROPHILS PERCENT AUTO 61 % (41-73); Platelet Count 225 K/mm3 (150-400); RDW Coefficient Variation 13.9 % (11.7-14.2); RDW Standard Deviation 44.7 fL (35.1-46.3); Red Blood Cell Count 5.14 M/mm3 (4.30-5.90); White Blood Cell Count 10.21 K/mm3 (4.00-11.30)
[2025-01-28 23:37] LABS: Alanine Aminotransfer (ALT/SGP 34 U/L (12-78); Albumin, Blood 3.7 g/dL (3.4-5.0); Alk Phos 81 U/L (50-136); Anion Gap 12 mmol/L (3-11); Aspartate Aminotrans (AST/SGOT 28 U/L (12-37); Bilirubin, Total 0.4 mg/dL (0.1-1.0); Blood Urea Nitrogen 31 mg/dL (8-24); Bun/Creatinine Ratio 21.2 (12.0-20.0); CO2, Blood 25 mmol/L (21-32); Calcium, Blood 8.8 mg/dL (8.5-10.1); Chloride, Blood 105 mmol/L (98-108); Creatinine, Blood 1.46 mg/dL (0.60-1.20); Globulin, Blood 3.7 g/dL (2.2-4.0); Glomerular Filtration Rate 59 (60-); Glucose, Blood 95 mg/dL (70-99); Potassium, Blood 3.8 mmol/L (3.5-5.5); Sodium, Blood 138 mmol/L (136-145); Total Protein, Blood 7.4 g/dL (6.4-8.2)
[2025-01-29] MEDS ORDERED: NS 500 ML IV SCH (00:05)
[2025-01-29 02:32] VITALS: BP 119/78
== END 2025-01-29 02:34 | disposition home or self-care (01) ==
LOC: ER 22:44
PROVIDERS: Student in an Organized Health Care Education/Training Program
DX: E86.1 Hypovolemia (principal); N17.9 Acute kidney failure, unspecified; I11.0 Hypertensive heart disease with heart failure; I50.9 Heart failure, unspecified; J43.9 Emphysema, unspecified; G47.33 Obstructive sleep apnea (adult) (pediatric); E11.9 Type 2 diabetes mellitus without complications; F17.210 Nicotine dependence, cigarettes, uncomplicated; Z99.81 Dependence on supplemental oxygen; Z88.8 Allergy status to other drugs, medicaments and biological substances; Z79.82 Long term (current) use of aspirin; Z79.899 Other long term (current) drug therapy
CPT/HCPCS: 80053; 84484; 85025; J7030

== ENCOUNTER 2025-03-10 13:23 | Emergency (ER) | payer OTHER ==
[~2025-03-10] VITALS: Ht 177.8 cm; Wt 149.7 kg
[2025-03-10 14:23] LABS: BASOPHILS ABSOLUTE AUTO 0.05 K/mm3 (0.00-0.23); BASOPHILS PERCENT AUTO 1 % (0-2); EOSINOPHILS ABSOLUTE AUTO 0.29 K/mm3 (0.00-0.68); EOSINOPHILS PERCENT AUTO 3 % (0-6); Hematocrit 43.3 % (37.0-53.0); Hemoglobin 14.7 g/dL (13.5-17.5); IMMATURE GRAN ABSOLUTE AUTO 0.03 K/mm3 (0.00-0.10); IMMATURE GRAN PERCENT AUTO 0 % (0-1); LYMPHOCYTES ABSOLUTE AUTO 1.82 K/mm3 (0.84-5.20); LYMPHOCYTES PERCENT AUTO 18 % (21-46); MONOCYTES ABSOLUTE AUTO 0.78 K/mm3 (0.16-1.47); MONOCYTES PERCENT AUTO 8 % (4-13); Mean Corpuscular HGB Conc 33.9 g/dL (31.5-36.5); Mean Corpuscular Volume 91 fL (80-100); Mean Platelet Volume 10.8 fL (9.1-12.4); NEUTROPHILS ABSOLUTE AUTO 6.95 K/mm3 (1.96-9.15); NEUTROPHILS PERCENT AUTO 70 % (41-73); Platelet Count 255 K/mm3 (150-400); RDW Coefficient Variation 13.2 % (11.7-14.2); RDW Standard Deviation 44.4 fL (35.1-46.3); Red Blood Cell Count 4.74 M/mm3 (4.30-5.90); White Blood Cell Count 9.92 K/mm3 (4.00-11.30)
[2025-03-10 15:22] LABS: Albumin, Blood 3.4 g/dL (3.4-5.0); Albumin/Globulin Ratio 0.9 (0.8-1.8); Bun/Creatinine Ratio 22.7 (12.0-20.0); Calcium, Blood 8.4 mg/dL (8.5-10.1); Creatinine, Blood 0.93 mg/dL (0.60-1.20); Globulin, Blood 3.7 g/dL (2.2-4.0); Potassium, Blood 3.7 mmol/L (3.5-5.5); Total Protein, Blood 7.1 g/dL (6.4-8.2)
[2025-03-10] MEDS ORDERED: CEPH500 PO (16:14)
[2025-03-10 16:35] VITALS: BP 154/72
== END 2025-03-10 16:35 | disposition home or self-care (01) ==
LOC: ER 13:23
PROVIDERS: Emergency Medicine
DX: R07.2 Precordial pain (principal); L02.412 Cutaneous abscess of left axilla; Z88.8 Allergy status to other drugs, medicaments and biological substances; Z79.82 Long term (current) use of aspirin; Z79.899 Other long term (current) drug therapy; I13.0 Hypertensive heart and chronic kidney disease with heart failure and stage 1 through stage 4 chronic kidney disease, or unspecified chronic kidney disease; N18.2 Chronic kidney disease, stage 2 (mild); I50.9 Heart failure, unspecified; G47.33 Obstructive sleep apnea (adult) (pediatric); F17.200 Nicotine dependence, unspecified, uncomplicated
CPT/HCPCS: 10060; 71045; 80053; 84484; 85025; 93005; 93010; 99285-25